=== PATIENT | male | born 1940 | race Caucasian/White ===

== ENCOUNTER 2024-05-05 22:06 | Emergency (ER) | payer OTHER ==
--- OUTSIDE RECORDS SUMMARY | 2024-05-05 22:10 | XMS REPORT | Continuity of Care Document ---
Author Name Unknown Address [address] [facility] [address] thconnect Address [address] [facility] 1 495 [place] [address] Care Team Providers Care Building Inspection Engineer Name Role Phone Le_H Attending Clinician Unavailable Debbie Hernandez Attending Clinician Unavailable Dipak Miller Attending Clinician Unavailable NICKO CHRISTENSEN Attending Clinician Maikol Krishna Admitting Clinician Unavailable Le_H Admitting Clinician Unavailable Payers Payer Name Policy Type Policy Number Effective Date Expirati on Date Source MEDICARE PART A \T\ B [id number] 2007 00:00:00 Problems Condition Name Condition Details Condition Category Status Onset Date Resolution Date Last Treatment Date Treating Clinician Comments Source Upper respirator y infection Upper Respirator y Infection Problem Active 05-31 00:00: 00 [facility] Benign neoplasm of pancreas, 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, Excluding Islets of Langerhans Problem Active 2013-04 00:00: 00 [facility] Benign prostatic hyperplasi a without outflow obstructio n Benign Prostatic Hyperplasi a without Outflow Obstructio n Problem Active 12-30 00:00: 00 [facility] 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 Problem Active 12-30 00:00: 00 [facility] Type 2 diabetes mellitus Type 2 Diabetes Mellitus Problem Active 12-30 00:00: 00 [facility] Hyperlipid emia Hyperlipid emia Problem Active 12-30 00:00: 00 [facility] Benign essential hypertensi on Benign Essential Hypertensi on Problem Active 12-30 00:00: 00 [facility] Allergies, Adverse Reactions, Alerts Allergy Name Allergy Type Status Severity Reaction(s) Onset Date Inactive Date Treating Clinician Comments Source No Known Intolera nces DA Active U 04-16 00:00: 00 [facility] No Known Intolera nces DA Active U UNKNOWN 04-16 00:00: 00 [facility] No Known Intolera nces DA Active U 06-26 00:00: 00 [facility] No Known Intolera nces DA Active U UNKNOWN 06-26 00:00: 00 [facility] NO KNOWN ALLERGIE S Drug Class Active [facility] Social History Smoking Status Start Date Stop Date Source Current Some Day Smoker [facility] Medications Ordered Medication Name Filled Medication Name Start Date Stop Date Current Medication? Ordering Clinician Indication Dosage Frequency Signature (SIG) Comments Components Source amlodipine 5 mg tablet Take 1 tablet every day by oral route. amlodipine 5 mg tablet Take 1 tablet every day by oral route. 05-31 00:00: 00 No 1 Q1D amlodipine 5 mg tablet Take 1 tablet every day by oral route. [facility] lisinopril 20 mg tablet Take 1 tablet every day by oral route. lisinopril 20 mg tablet Take 1 tablet every day by oral route. 05-31 00:00: 00 No 1 Q1D lisinopril 20 mg tablet Take 1 tablet every day by oral route. [facility] simvastatin 20 mg tablet Take 1 tablet every day by oral route. simvastatin 20 mg tablet Take 1 tablet every day by oral route. 05-31 00:00: 00 No 1 Q1D simvastati n 20 mg tablet Take 1 tablet every day by oral route. [facility] metformin 500 mg tablet Take 1 tablet twice a day by oral route. metformin 500 mg tablet Take 1 tablet twice a day by oral route. 11-05 00:00: 00 No 1 BID metformin 500 mg tablet Take 1 tablet twice a day by oral route. [facility] potassium chloride ER 10 mEq capsule,ext ended release Take 1 capsule every day by oral route. potassium chloride ER 10 mEq capsule,ext ended release Take 1 capsule every day by oral route. 11-05 00:00: 00 No 1capsul e(s) Q1D potassium chloride ER 10 mEq capsule,ex tended release Take 1 capsule every day by oral route. [facility] Ativan 1 mg tablet Ativan 1 mg tablet 07-18 00:00: 00 No Ativan 1 mg tablet [facility] azithromyci n 250 mg tablet TAKE 2 TABLETS (500 MG) BY ORAL ROUTE ONCE DAILY FOR 1 DAY THEN 1 TABLET (250 MG) BY ORAL ROUTE ONCE DAILY FOR 4 DAYS azithromyci n 250 mg tablet TAKE 2 TABLETS (500 MG) BY ORAL ROUTE ONCE DAILY FOR 1 DAY THEN 1 TABLET (250 MG) BY ORAL ROUTE ONCE DAILY FOR 4 DAYS No azithromyc in 250 mg tablet TAKE 2 TABLETS (500 MG) BY ORAL ROUTE ONCE DAILY FOR 1 DAY THEN 1 TABLET (250 MG) BY ORAL ROUTE ONCE DAILY FOR 4 DAYS [facility] benzonatate 100 mg capsule Take 1 capsule 3 times a day by oral route for 10 days. benzonatate 100 mg capsule Take 1 capsule 3 times a day by oral route for 10 days. No 1capsul e(s) TID benzonatat e 100 mg capsule Take 1 capsule 3 times a day by oral route for 10 days. [facility] hydrochloro thiazide 25 mg tablet Take 1 tablet every day by oral route. hydrochloro thiazide 25 mg tablet Take 1 tablet every day by oral route. No 1 Q1D hydrochlor othiazide 25 mg tablet Take 1 tablet every day by oral route. [facility] Immunizations Ordered Immunization Name Filled Immunization Name Date Status Comments Source Moderna COVID-19 Vaccine Moderna COVID-19 Vaccine 2020-08-25 00:00:00 Completed Moderna COVID-19 Vaccine Moderna COVID-19 Vaccine 2020-07-28 00:00:00 Completed Vital Signs Vital Name Observation Time Observation Value Comments S ource BP Diastolic 2022-05-31 00:00:00 68 mm[Hg] [facility] Height 2022-05-31 00:00:00 67 [in_i] [facility] BMI (Body Mass Index) 2022-05-31 00:00:00 24.4 kg/m2 [facility] BP Systolic 2022-05-31 00:00:00 114 mm[Hg] [facility] Body Weight 2022-05-31 00:00:00 156 [lb_av] Haja [facility] Encounters Start Date/Time End Date/Time Encounter Type Admission Type Attending [facility] Care Facility Care Department Encounter ID Source 2020-04-16 02:05:00 Inpatient [facility] EBER [id number] 30 [facility] 2019-05-28 15:10:00 Inpatient [facility] E[facility] [id number] 06 [facility] 2022-05-31 00:00:00 2022-05-31 00:00:00 Outpatient Le_H VFP VF [id number] [facility] 2022-05-31 00:00:00 2022-05-31 00:00:00 Jase PACE MD: [id number] , [address], [place] [address] , Ph. VFP [place] - [facility] [place] - VM_HOU_Floresita er Sarabjit [id number] [facility] 2020-11-04 16:19:00 2020-11-04 18:27:00 Emergency EM Debbie Hernandez [facility] E[facility] [id number] 63 [facility] 2020-09-28 10:47:00 2020-09-28 10:58:00 Emergency EM Dipak Miller [facility] [id number] 74 [facility] 2020-08-25 00:00:00 2020-08-25 00:00:00 Outpatient GCCOVIDV GCCOVIDV [id number] [facility] 2020-07-28 00:00:00 2020-07-28 00:00:00 Outpatient GCCOVIDV GCCOVID[facility] [id number] [facility] 2019-09-16 08:30:00 2019-09-16 08:30:00 Outpatient [facility]O [facility] [id number] [facility] 2019-09-16 08:30:00 2019-09-16 08:30:00 Outpatient [facility] [id number] [facility] Results Test Description Test Time Test Comments Results Resul t Comments Source - CT ABD PELVIS W/CONT 2020-11-04 18:10:00 [facility] 1940 Sex: M FAX: Maikol Ferris MD [phone] [place]: St: [facility] FAX: Debbie Guzman MD Name: JED FRANKEL [facility] : 1940 Age/S: 80/M [address] [facility] Unit: [id number] Loc: [address] Phys: [place] [id number] Acct: [id number] Dis Date: Status: REG ER PHONE #: [phone] Exam Date: 11/04/2020 1750 FAX #: [phone] Reason: llq pain EXAMS: CPT CODE: [id number] CT ABD PELVIS W/CONT 23477 EXAM: CT ABDOMEN AND PELVIS WITH IV CONTRAST DICTATION LOCATION: 8 HISTORY: Male, 80 years of age with left lower quadrant pain TECHNIQUE: Contrast: Nonionic IV contrast was given. No GI contrast was given. Portal venous phase: Abdomen and pelvis Delayed phase: None Reconstructions: Coronal and sagittal One or more of the following dose reduction techniques were used: Automated exposure control; adjustment of the mA and/or kV according to the patient size; and/or use of iterative reconstruction technique. COMPARISON: Previous CT abdomen and pelvis without contrast 04/16/2020; MRI abdomen pre and postcontrast 01/06/2014 FINDINGS: Statements: Exam quality is acceptable. Lower thorax: Unremarkable. Hepatobiliary: The liver is normal without focal lesion. The gallbladder is normal. No biliary dilation. Pancreas: Benign-appearing 1.8 cm cyst again seen in the anterior body of pancreas. No other pancreatic mass, ductal dilatation, or inflammation. Spleen: Normal. Adrenals: 2.1 cm low-density adenoma again seen in the left adrenal. Right adrenal is normal. Genitourinary: No solid renal mass, significant cortical thinning, obvious renal stone or hydronephrosis. Ureters are unremarkable. Urinary bladder is unremarkable. Prostate is moderately enlarged and lobulated. PAGE 1 Signed Report (CONTINUED) FAX: Maikol Ferris MD [phone] [place]: St: [facility] FAX: N Debbie Hernandez MD Name: JED FRANKEL [facility] : 1940 Age/S: 80/M [address] [facility] Unit: [id number] Loc: E.ERS2 [place], [place]: [place] [address] Acct: [id number] Dis Date: Status: REG ER PHONE #: [phone] Exam Date: 11/04/2020 175 FAX #: [phone] Reason: llq pain EXAMS: CPT CODE: [id number] CT ABD PELVIS W/CONT 85408 (Continued) Gastrointestinal: There are numerous colonic diverticula. Mild wall thickening and mucosal edema with mild pericolic stranding seen in the distal descending colon consistent with diverticulitis. No paracolic abscess collection. No other areas of bowel wall thickening nor. Anterior inflammation. No evidence for bowel obstruction. The appendix is normal. Vascular: Atherosclerotic calcifications are seen within the aorta and branch vessels. No aneurysm or dissection. IVC is unremarkable. Portal vein is patent. Lymphatics: No enlarged lymph nodes by CT size criteria. Bones/Soft Tissues: No acute osseous findings. 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 No ventral hernias. Peritoneum/Other: No free intraperitoneal air. No free intraperitoneal fluid. IMPRESSION: 1. Mild acute diverticulitis in the distal descending colon. 2. No abscess, free fluid, or free air. 3. Benign-appearing cyst in body of pancreas and benign adenoma in left adrenal unchanged since prior studies. 4. Enlarged prostate. at 1810 Reported and signed by: Margo Lozano M.D. CC: Maikol Mahmood MD; Debbie Hernandez MD Technologist: SWEETIE Shafer Dt/Tm: 11/04/2020 (1809) t.CLW Orig Print D/T: S: 11/04/2020 (3 PAGE 2 Signed Report [id number] 17:22:00* Test Item Value Reference Range Interpretation Comme [facility] LIPASE (test code = LIP) 115 Units/L 65.0-230.0 N B-TYPE NATRIURETIC [id number] 17:22:00* Test Item Value Reference Range Interpretation Comme [facility] B-TYPE NATRIURETIC PEPTIDE ( test code = BNP) 18.1 PG/ML 5-100 N CARDIAC ENZYMES [id number] 17:22:00* Test Item Value Reference Range Interpretation Comme nts CREATINE KINASE (CK) (test code = CK) 40 Units/L 35-232 N TROPONIN-I (test code = TROPI) <0.02 NG/ML 0.00-0.06 N REFERENCE RANGE TROPONIN I HEALTHY INDIVIDUALS: <0.06 ng/mL R/O ISCHEMIA: 0.07 - 0.60 ng/mL CUT-OFF RANGE FOR AMI: 0.60 - 1.5 ng/mL COMPREHENSIVE METABOLIC [id number] 17:15:00* Test Item Value Reference Range Interpretation Comme nts SODIUM (test code = NA) 141 mmol/l 134.0-147.0 N POTASSIUM (test code = K) 2.8 mmol/L 3.6-5.2 L CHLORIDE (test code = CL) 102 mmol/l 98.0-107.0 N CARBON DIOXIDE (test code = CO2) 30.7 mmol/l 21.0-33.0 N ANION GAP (test code = GAP) 11.0 0-20 N GLUCOSE (test code = GLU) 139 mg/dl 70.0-110.0 H BLOOD UREA NITROGEN (test co de = BUN) 11 mg/dl 7.0-18.0 N CREATININE (test code = CREAT) 1.09 mg/dL 0.60-1.30 N GFR NON BLACK (test code = GFRNONBLACK) 69 mL/min 70-80 L GFR BLACK (test code = GFRBLACK) 84 mL/min 85-97 L TOTAL PROTEIN (test code = PROT) 8.1 GM/DL 6.0-8.1 N ALBUMIN (test code = ALB) 4.0 gm/dL 3.2-4.7 N CALCIUM (test code = CA) 8.3 mg/dl 8.0-10.5 N BILIRUBIN TOTAL (test code = BILT) 0.5 mg/dl 0.0-1.0 N SGOT/AST (test code = AST) 34 Units/L 15-37 N SGPT/ALT (test code = ALT) 54 Units/L 12.0-78.0 N ALKALINE PHOSPHATASE TOTAL ( test code = ALKP) 82 Units/L 50.0-136.0 N [id number] 17:15:00* Test Item Value Reference Range Interpretation Comme [facility] LIPASE (test code = LIP) 115 Units/L 65.0-230.0 N B-TYPE NATRIURETIC [id number] 17:15:00* Test Item Value Reference Range Interpretation Comme [facility] B-TYPE NATRIURETIC PEPTIDE ( test code = BNP) PG/ML 5-100 CARDIAC ENZYMES [id number] 17:15:00* Test Item Value Reference Range Interpretation Comme [facility] CREATINE KINASE (CK) (test code = CK) 40 Units/L 35-232 N TROPONIN-I (test code = TROPI) <0.02 NG/ML 0.00-0.06 N REFERENCE RANGE TROPONIN I HEALTHY INDIVIDUALS: <0.06 ng/mL R/O ISCHEMIA: 0.07 - 0.60 ng/mL CUT-OFF RANGE FOR AMI: 0.60 - 1.5 ng/mL - XR CHEST 1 [id number] 17:11:00 [facility] : 1940 Sex: M FAX: Maikol Ferris MD [phone] [place]: St: PRE FAX: Debbie Guzman MD [facility] 1940 Age/S: 80[facility]M [address] [facility] Unit #: [id number] Loc: E.[address] [place] [address] Phys: [place] [id number] Acct: [id number] Dis Date: Status: PRE ER PHONE #: [phone] Exam Date: 11/04/2020 1658 FAX #: [phone] Reason: llq pain EXAMS: CPT CODE: [id number] XR CHEST 1 V 75597 DICTATION LOCATION: H48 HISTORY: Male, 80 years of age with left lower quadrant pain EXAM: CHEST X-RAY, ONE VIEW COMPARISON: 06/25/2012 COMMENT: Frontal view of the chest is provided. Calcified plaque seen in the aorta. No focal infiltrate, consolidation, mass lesion, or effusion is seen. Cardiac silhouette is within normal limits. No acute bony abnormalities. IMPRESSION: No acute infiltrate or effusion and no significant change since prior study. at 1711 Reported and signed by: Margo Lozano M.D. CC: Maikol Ivey MD; Debbie Hernandez MD Technologist: MIKE VALDERRAMA Trnscrd Date/Time/By: 11/04/2020 (1710) : By: Radha PAGE 1 Signed Report FAX: Maikol Ferris MD [phone] [place]: St: PRE FAX: Debbie Guzman MD Name: JED FRANKEL [facility] : 1940 Age/S: 80/M [address] [facility] Unit #: [id number] Loc: [address] Phys: [place] [address] Acct: [id number] Dis Date: Status: PRE ER PHONE #: [phone] Exam Date: 11/04/20201657 FAX #: [phone] Reason: llq pain EXAMS: CPT CODE: [id number] XR CHEST 1 V 34981 (Continued) Orig Print D/T: S: 11/04/2020 (8837) PAGE 2 Signed ReportURINALYSIS [id number] 17:06:00* Test Item Value Reference Range Interpretation Comme nts UA COLOR (test code = COLU) YELLOW UA APPEARANCE (test code = APPU) CLEAR UA GLUCOSE DIPSTICK (test code = DGLUU) NORMAL mg/dl NORMAL UA BILIRUBIN DIPSTICK (test code = BILU) NEGATIVE mg/dL NEGATIVE UA KETONE DIPSTICK (test code = KETU) NEGATIVE mg/dl NEGATIVE UA SPECIFIC GRAVITY (test code = SGU) 1.015 1.000-1.030 UA BLOOD DIPSTICK (test code = BRYNN) NEGATIVE Dimitri/micL NEGATIVE UA PH DIPSTICK (test code = DANILO) 5.0 5.0-9.0 UA PROTEIN DIPSTICK (test code = PROU) NEGATIVE mg/dl NEGATIVE UA UROBILINIOGEN DIPSTICK (test code = URO) NORMAL mg/dl NORMAL UA NITRITE DIPSTICK (test code = MAX) NEGATIVE NEGATIVE UA LEUKOCYTE ESTERASE DIPSTICK (test code = LEUU) NEGATIVE Richie/micL NEGATIVE UA WBC (test code = WBCU) NONE SEEN WBC/HPF NONE UA RBC (test code = RBCU) 0-2 RBC/HPF 0-3 UA EPITHELIAL CELLS (test code = EPIU) 0-3 EPI/HPF 0-3 UA BACTERIA (test code = BACU) TRACE NONE URINALYSIS [id number] 17:03:00* Test Item Value Reference Range Interpretation Comme nts UA COLOR (test code = COLU) YELLOW UA APPEARANCE (test code = APPU) CLEAR UA GLUCOSE DIPSTICK (test code = DGLUU) NORMAL mg/dl NORMAL UA BILIRUBIN DIPSTICK (test code = BILU) NEGATIVE mg/dL NEGATIVE UA KETONE DIPSTICK (test code = KETU) NEGATIVE mg/dl NEGATIVE UA SPECIFIC GRAVITY (test code = SGU) 1.015 1.000-1.030 UA BLOOD DIPSTICK (test code = BRYNN) NEGATIVE Dimitri/micL NEGATIVE UA PH DIPSTICK (test code = DANILO) 5.0 5.0-9.0 UA PROTEIN DIPSTICK (test code = PROU) NEGATIVE mg/dl NEGATIVE UA UROBILINIOGEN DIPSTICK (test code = URO) NORMAL mg/dl NORMAL UA NITRITE DIPSTICK (test code = MAX) NEGATIVE NEGATIVE UA LEUKOCYTE ESTERASE DIPSTICK (test code = LEUU) NEGATIVE Richie/micL NEGATIVE UA WBC (test code = WBCU) WBC/HPF NONE UA RBC (test code = RBCU) RBC/HPF 0-3 UA EPITHELIAL CELLS (test code = EPIU) EPI/HPF 0-3 UA BACTERIA (test code = BACU) NONE CBC W/AUTO [id number] 17:03:00* Test Item Value Reference Range Interpretation Comme nts WHITE BLOOD CELL (test code = WBC) 11.6 K/mm3 4.5-11.0 H RED BLOOD CELL (test code = RBC) 5.11 M/mm3 4.40-5.90 N HEMOGLOBIN (test code = HGB) 15.2 gm/dL 13.0-17.0 N HEMATOCRIT (test code = HCT) 46.8 % 36.0-48.0 N MEAN CELL VOLUME (test code = MCV) 91.6 UM3 80.0-94.0 N MEAN CELL HGB (test code = MCH) 29.7 UUG 25.5-32.5 N MEAN CELL HGB CONCETRATION (test code = MCHC) 32.5 gm/dL 29.0-35.5 N RED CELL DISTRIBUTION WIDTH (test code = RDW) 12.7 % 11.5-15.0 N RED CELL DISTRIBUTION WIDTH SD (test code = RDW-SD) 42.2 fL 34.8-50.2 N PLATELET COUNT (test code = PLT) 225 K/mm3 150-400 N MEAN PLATELET VOLUME (test c ode = MPV) 10.8 fl 7.4-10.4 H NEUTROPHIL % (test code = NT%) 65.4 % 49.0-76.0 N IMMATURE GRANULOCYTE % (test code = IG%) 0.3 % 0.0-0.4 N LYMPHOCYTE % (test code = LY%) 24.7 % 23.0-38.0 N MONOCYTE % (test code = MO%) 8.9 % 1.0-10.0 N EOSINOPHIL % (test code = EO%) 0.3 % 1.0-5.0 L BASOPHIL % (test code = BA%) 0.4 % 0.0-1.0 N NUCLEATED RBC % (test code = NRBC%) 0.0 % 0.0-0.1 N NEUTROPHIL # (test code = NT#) 7.6 K/mm3 2.4-6.3 H IMMATURE GRANULOCYTE # (test code = IG#) 0.04 x10 3/uL 0.00-0.07 N LYMPHOCYTE # (test code = LY#) 2.9 K/mm3 1.2-4.0 N MONOCYTE # (test code = MO#) 1.0 K/mm3 0.0-0.6 H EOSINOPHIL # (test code = EO#) 0.0 K/MM3 0.0-0.7 N BASOPHIL # (test code = BA#) 0.1 K/mm3 0.0-0.2 N NUCLEATED RBC # (test code = NRBC#) 0.00 X10 3uL 0.00-0.01 N - CT ABD PELVIS W/O [id number] 03:47:00 [facility] : 1940 Sex: M FAX: Maikol Ferris MD [phone] [place]: St: REG FAX: Riky Valera MD [phone] Name: FRANKELJED COLON [facility] : 1940 Age/S: 80/M [address] [facility] Unit: [id number] Loc: [address] Phys: [place] [address] Acct: [id number] Dis Date: Status: REG ER PHONE #: Exam Date: 04/16/2020309 FAX #: [phone] Reason: LLQ PAIN, RULE OUT DIVERTICULITIS EXAMS: CPT CODE: [id number] CT ABD PELVIS W/O CONT 52600 EXAM: - CT ABD PELVIS W/O CONT HISTORY: Left lower quadrant pain. TECHNIQUE: Axial tomograms through the abdomen and pelvis were obtained without intravenous contrast. Coronal and sagittal reformatted images are provided. This exam was performed according to our departmental dose-optimization program, which includes automated exposure control, adjustment of the mA and/or kV according to patient size and/or use of iterative reconstructiontechnique. COMPARISON: December 30, 2013. FINDINGS: The visualized lung bases are clear. The unopa cified liver, spleen, right adrenal gland and kidneys demonstrate no significant abnormalities. No hydronephrosis. There is a small 1.5 cm cystic lesion in body portion of pancreas anteriorly. This has increased in size compared to 8 mm on prior exam. Stable 2.4 cm left adrenal nodule. 2 cm cortical cyst in the left kidney has increased in size from 10 mm on prior exam. The appendix has a normal appearance. The colon is filled with fecal matter. There is as diverticulosis. Minimal stranding of fat around a diverticulum in left lower quadrant medially. There is no evidence of extraluminal freeair or fluid collection. There is no adenopathy or free fluid. The prostate is prominent in size indenting the base of the urinary bladder. The osseous structures demonstrate degenerative change without focal lesion. PAGE 1 Signed Report (CONTINUED) FAX: Maikol Ferris MD [phone] [place]: St: REG FAX: Riky Valera MD [phone] Name: JED FRANKEL [facility] : 1940 Age/S: 80/M [address] [facility] Unit: [id number] Loc: [address] Phys: [place] [address] Acct: [id number] Dis Date: Status: REG ER PHONE #: [phone] Exam Date: 04/16/2020309 FAX #: [phone] Reason: LLQ PAIN, RULE OUT DIVERTICULITIS EXAMS: CPT CODE: [id number] CT ABD PELVIS W/O CONT 78158 (Continued) There is calcified plaque involving the abdominal aorta and it's major branching vessels. IMPRESSION: Colon diverticulosis. There is trace stranding of fat in left lower quadrant. This could represent mild acute diverticulitis. Small cystic lesion in body of the pancreas. This has increased in size compared to previous exam. Stable left adrenal nodule. Minimal increase in size of the left renal cyst. Atherosclerosis. Prominent prostate. at 0347 Reported and signed by: Marcin Nair M.D. CC: Maikol Mahmood MD; Riky Valera MD Technologist: REGINA GONZALES Trnscrd Dt/Tm: 04/16/2020 (0347) [email or web address].[id number] Orig Print D/T: S: 04/16/2020 (3675 PAGE 2 Signed ReportBASIC METABOLIC PANEL 2020-04-16 03:06:00* Test Item Value Reference Range Interpretation Comme nts SODIUM (test code = NA) 138 mmol/l 134.0-147.0 N POTASSIUM (test code = K) 3.2 mmol/L 3.6-5.2 L CHLORIDE (test code = CL) 100 mmol/l 98.0-107.0 N CARBON DIOXIDE (test code = CO2) 30.9 mmol/l 21.0-33.0 N ANION GAP (test code = GAP) 10.3 0-20 N GLUCOSE (test code = GLU) 186 mg/dl 70.0-110.0 H BLOOD UREA NITROGEN (test co de = BUN) 9 mg/dl 7.0-18.0 N CREATININE (test code = CREAT) 0.87 mg/dL 0.60-1.30 N GFR NON BLACK (test code = GFRNONBLACK) 90 mL/min 70-80 H GFR BLACK (test code = GFRBLACK) 109 mL/min 85-97 H CALCIUM (test code = CA) 8.9 mg/dl 8.0-10.5 N Specimen comments: Clean CatchHEPATIC FUNCTION PANEL [id number] 03:06:00* Test Item Value Reference Range Interpretation Comme nts TOTAL PROTEIN (test code = PROT) 7.4 GM/DL 6.0-8.1 N ALBUMIN (test code = ALB) 3.6 gm/dL 3.2-4.7 N BILIRUBIN TOTAL (test code = BILT) 0.6 mg/dl 0.0-1.0 N BILIRUBIN DIRECT (test code = BILD) 0.2 mg/dl 0.0-0.3 N SGOT/AST (test code = AST) 51 Units/L 15-37 H SGPT/ALT (test code = ALT) 78 Units/L 12.0-78.0 N ALKALINE PHOSPHATASE TOTAL ( test code = ALKP) 90 Units/L 50.0-136.0 N Specimen comments: Clean [id number] 03:06:00* Test Item Value Reference Range Interpretation Comme nts LIPASE (test code = LIP) 164 Units/L 65.0-230.0 N Specimen comments: AUPEO![id number] 03:06:00* Test Item Value Reference Range Interpretation Comme nts TROPONIN-I (test code = TROPI) <0.02 NG/ML 0.00-0.06 N REFERENCE RANGE TROPONIN I HEALTHY INDIVIDUALS: <0.06 ng/mL R/O ISCHEMIA: 0.07 - 0.60 ng/mL CUT-OFF RANGE FOR AMI: 0.60 - 1.5 ng/mL Specimen comments: AUPEO!BASIC METABOLIC [id number] 02:56:00* Test Item Value Reference Range Interpretation Comme nts SODIUM (test code = NA) 138 mmol/l 134.0-147.0 N POTASSIUM (test code = K) 3.2 mmol/L 3.6-5.2 L CHLORIDE (test code = CL) 100 mmol/l 98.0-107.0 N CARBON DIOXIDE (test code = CO2) 30.9 mmol/l 21.0-33.0 N ANION GAP (test code = GAP) 10.3 0-20 N GLUCOSE (test code = GLU) mg/dl 70.0-110.0 BLOOD UREA NITROGEN (test co de = BUN) mg/dl 7.0-18.0 CREATININE (test code = CREAT) mg/dL 0.60-1.30 GFR NON BLACK (test code = GFRNONBLACK) mL/min 70-80 GFR BLACK (test code = GFRBLACK) mL/min 85-97 CALCIUM (test code = CA) mg/dl 8.0-10.5 Specimen comments: Clean CatchHEPATIC FUNCTION PANEL [id number] 02:56:00* Test Item Value Reference Range Interpretation Comme nts TOTAL PROTEIN (test code = PROT) gm/dL 6.4-8.2 ALBUMIN (test code = ALB) gm/dl 3.2-4.7 BILIRUBIN TOTAL (test code = BILT) mg/dl 0.0-1.0 BILIRUBIN DIRECT (test code = BILD) mg/dl 0.0-0.3 SGOT/AST (test code = AST) Units/L 15-37 SGPT/ALT (test code = ALT) Units/L 12.0-78.0 ALKALINE PHOSPHATASE TOTAL ( test code = ALKP) Units/L 50.0-136.0 Specimen comments: Clean [id number] 02:56:00* Test Item Value Reference Range Interpretation Comme nts LIPASE (test code = LIP) Units/L 65.0-230.0 Specimen comments: Clean [id number] 02:56:00* Test Item Value Reference Range Interpretation Comme nts TROPONIN-I (test code = TROPI) NG/ML 0.00-0.06 Specimen comments: Clean CatchURINALYSIS [id number] 02:49:00* Test Item Value Reference Range Interpretation Comme nts UA COLOR (test code = COLU) YELLOW UA APPEARANCE (test code = APPU) CLEAR UA GLUCOSE DIPSTICK (test code = DGLUU) 50 mg/dl mg/dl NORMAL A UA BILIRUBIN DIPSTICK (test code = BILU) NEGATIVE mg/dL NEGATIVE UA KETONE DIPSTICK (test code = KETU) NEGATIVE mg/dl NEGATIVE UA SPECIFIC GRAVITY (test code = SGU) 1.010 1.000-1.030 UA BLOOD DIPSTICK (test code = BRYNN) 10 Dimitri/micL Dimitri/micL NEGATIVE A UA PH DIPSTICK (test code = DANILO) 7.0 5.0-9.0 UA PROTEIN DIPSTICK (test code = PROU) 15 mg/dl mg/dl NEGATIVE A UA UROBILINIOGEN DIPSTICK (test code = URO) NORMAL mg/dl NORMAL UA NITRITE DIPSTICK (test code = MAX) NEGATIVE NEGATIVE UA LEUKOCYTE ESTERASE DIPSTICK (test code = LEUU) NEGATIVE Richie/micL NEGATIVE UA WBC (test code = WBCU) 0-3 WBC/HPF NONE UA RBC (test code = RBCU) 0-2 RBC/HPF 0-3 UA EPITHELIAL CELLS (test code = EPIU) 0-3 EPI/HPF 0-3 UA BACTERIA (test code = BACU) FEW NONE Specimen comments: Clean CatchCBC W/AUTO [id number] 02:48:00* Test Item Value Reference Range Interpretation Comme nts WHITE BLOOD CELL (test code = WBC) 6.5 K/mm3 4.5-11.0 N RED BLOOD CELL (test code = RBC) 5.01 M/mm3 4.40-5.90 N HEMOGLOBIN (test code = HGB) 15.5 gm/dL 13.0-17.0 N HEMATOCRIT (test code = HCT) 47.1 % 36.0-48.0 N MEAN CELL VOLUME (test code = MCV) 94.0 UM3 80.0-94.0 N MEAN CELL HGB (test code = MCH) 30.9 UUG 25.5-32.5 N MEAN CELL HGB CONCETRATION (test code = MCHC) 32.9 gm/dL 29.0-35.5 N RED CELL DISTRIBUTION WIDTH (test code = RDW) 13.0 % 11.5-15.0 N RED CELL DISTRIBUTION WIDTH SD (test code = RDW-SD) 44.5 fL 34.8-50.2 N PLATELET COUNT (test code = PLT) 206 K/mm3 150-400 N MEAN PLATELET VOLUME (test c ode = MPV) 10.5 fl 7.4-10.4 H NEUTROPHIL % (test code = NT%) 52.6 % 49.0-76.0 N IMMATURE GRANULOCYTE % (test code = IG%) 0.8 % 0.0-0.4 H LYMPHOCYTE % (test code = LY%) 32.7 % 23.0-38.0 N MONOCYTE % (test code = MO%) 12.1 % 1.0-10.0 H EOSINOPHIL % (test code = EO%) 1.2 % 1.0-5.0 N BASOPHIL % (test code = BA%) 0.6 % 0.0-1.0 N NUCLEATED RBC % (test code = NRBC%) 0.0 % 0.0-0.1 N NEUTROPHIL # (test code = NT#) 3.4 K/mm3 2.4-6.3 N IMMATURE GRANULOCYTE # (test code = IG#) 0.05 x10 3/uL 0.00-0.07 N LYMPHOCYTE # (test code = LY#) 2.1 K/mm3 1.2-4.0 N MONOCYTE # (test code = MO#) 0.8 K/mm3 0.0-0.6 H EOSINOPHIL # (test code = EO#) 0.1 K/MM3 0.0-0.7 N BASOPHIL # (test code = BA#) 0.0 K/mm3 0.0-0.2 N NUCLEATED RBC # (test code = NRBC#) 0.00 X10 3uL 0.00-0.01 N URINALYSIS [id number] 02:43:00* Test Item Value Reference Range Interpretation Comme nts UA COLOR (test code = COLU) YELLOW UA APPEARANCE (test code = APPU) CLEAR UA GLUCOSE DIPSTICK (test code = DGLUU) 50 mg/dl mg/dl NORMAL A UA BILIRUBIN DIPSTICK (test code = BILU) NEGATIVE mg/dL NEGATIVE UA KETONE DIPSTICK (test code = KETU) NEGATIVE mg/dl NEGATIVE UA SPECIFIC GRAVITY (test code = SGU) 1.010 1.000-1.030 UA BLOOD DIPSTICK (test code = BRYNN) 10 Dimitri/micL Dimitri/micL NEGATIVE A UA PH DIPSTICK (test code = DANILO) 7.0 5.0-9.0 UA PROTEIN DIPSTICK (test code = PROU) 15 mg/dl mg/dl NEGATIVE A UA UROBILINIOGEN DIPSTICK (test code = URO) NORMAL mg/dl NORMAL UA NITRITE DIPSTICK (test code = MAX) NEGATIVE NEGATIVE UA LEUKOCYTE ESTERASE DIPSTICK (test code = LEUU) NEGATIVE Richie/micL NEGATIVE UA WBC (test code = WBCU) WBC/HPF NONE UA RBC (test code = RBCU) RBC/HPF 0-3 UA EPITHELIAL CELLS (test code = EPIU) EPI/HPF 0-3 UA BACTERIA (test code = BACU) NONE Specimen comments: Clean Catch
--- NOTE | 2024-05-05 22:56 | ER ---
Nurse's Notes [facility] Name: Nitin Jones Age: 84 yrs Sex: Male : 1940 Arrival Date: 05/05/2024 Time: 22:06 Bed 3 Private MD: Diagnosis: Chronic Dementia, Dementia with memory loss without behavioral disturbances. Presentation: 05/05 22:08 Chief complaint: EMS states: Pt was pulled over and [place] [employer] realized this bm8 probably a demented person. PT brought in for possible high blood pressure. Coronavirus screen: At this time, the client does not indicate any symptoms associated with coronavirus-19. Ebola Screen: Patient negative for fever greater than or equal to 101.5 degrees Fahrenheit, and additional compatible Ebola Virus Disease symptoms Patient denies exposure to infectious person. Patient denies travel to an Ebola-affected area in the 21 days before illness onset. No symptoms or risks identified at this time. Initial Sepsis Screen: Does the patient meet any 2 criteria? No. Patient's initial sepsis screen is negative. Does the patient have a suspected source of infection? No. Patient's initial sepsis screen is negative. Risk Assessment: Do you want to hurt yourself or someone else? Patient reports no desire to harm self or others. Onset of symptoms is unknown. 22:08 Method Of Arrival: EMS: [facility] 8 22:08 Acuity: RON 3 bm8 Triage Assessment: 22:10 General: Appears in no apparent distress. comfortable, well groomed, well developed, bm8 well nourished, Behavior is calm, cooperative, appropriate for age, friendly pleasant and open. Pain: Denies pain. EENT: No deficits noted. No signs and/or symptoms were reported regarding the EENT system. Neuro: Level of Consciousness is awake, alert, obeys commands, Oriented to person, place, situation, Appropriate for age Moves all extremities. Full function Gait is steady, Speech is normal, Facial symmetry appears normal, Pupils are PERRLA. Cardiovascular: Denies chest pain, Capillary refill < 3 seconds in bilateral fingers Patient's skin is warm and dry. Respiratory: Airway is patent Respiratory effort is even, unlabored, Respiratory pattern is regular, symmetrical. GI: No signs and/or symptoms were reported involving the gastrointestinal system. : No signs and/or symptoms were reported regarding the genitourinary system. Derm: No signs and/or symptoms reported regarding the dermatologic system. Musculoskeletal: No signs and/or symptoms reported regarding the musculoskeletal system. Historical: - Allergies: 22:10 No Known Allergies; bm8 - Home Meds: 22:10 Unable to obtain [Active]; bm8 - PMHx: 22:10 Dementia; bm8 - PSHx: 22:10 None; bm8 - Immunization history:: Adult Immunizations unknown. - Infectious Disease History:: Denies. - Social history:: Smoking status: unknown. - Family history:: not pertinent. Screenin:37 [facility] ED Fall Risk Assessment (Adult) History of falling in the last 3 months, bm8 including since admission No falls in past 3 months (0 pts) Confusion or Disorientation Yes (5 pts) Intoxicated or Sedated No (0 pts) Impaired Gait No (0 pts) Mobility Assist Device Used No (0 pt) Altered Elimination No (0 pt) Score/Fall Risk Level 0 - 2 = Low Risk Oriented to surroundings, Maintained a safe environment, Educated pt \T\ family on fall prevention, incl call for assistance when getting out of bed, Assessed \T\ reinforced patient's understanding of fall precautions, Hourly rounding (assess needs \T\ fall precautionary measures) done, Used ambulatory aids as needed (educated on \T\ assisted with), Used gait belt as appropriate. Abuse screen: Denies threats or abuse. Nutritional screening: No deficits noted. Tuberculosis screening: No symptoms or risk factors identified. Assessment: 22:37 Reassessment: Patient appears in no apparent distress at this time. Patient and/or bm8 family updated on plan of care and expected duration. Pain level reassessed. Patient is alert, oriented x 3, equal unlabored respirations, skin warm/dry/pink. Patient denies pain at this time. General: Appears in no apparent distress. comfortable, Behavior is calm, cooperative, appropriate for age. Pain: Denies pain. 22:57 Reassessment: Pt's daughter in law present to take pt home. bm8 Vital Signs: 22:08 BP 159 / 76; Pulse 106; Resp 18; Temp 97.9; Pulse Ox 98% ; Weight 68.04 kg; Height 5 bm8 ft. 8 in. ; Pain 0/10; 22:37 BP 131 / 62; Pulse 82; Resp 17; Temp 97.9; Pulse Ox 98% ; Pain 0/10; bm8 22:08 Body Mass Index 22.81 (68.04 kg, 172.72 cm) bm8 22:08 Pain Scale: Adult bm8 22:37 Pain Scale: Adult bm8 [place] Coma Score: 22:37 Eye Response: spontaneous(4). Motor Response: obeys commands(6). Verbal Response: bm8 oriented(5). Total: 15. 03 02:59 Eye Response: spontaneous(4). Motor Response: obeys commands(6). Verbal Response: sp4 oriented(5). Total: 15. NIH Stroke Scale Scores: 03:02 NIHSS Score: 2 sp4 ED Course: 05/05 22:07 Patient arrived in ED. bm8 22:08 Kirk Edouard MD is Attending Physician. sp4 22:10 Triage completed. bm8 22:10 Arm band placed on right wrist. bm8 22:15 Gennaro Lagos RN is Primary Nurse. bm8 22:37 Patient has correct armband on for positive identification. Client placed on continuous bm8 cardiac and pulse oximetry monitoring. NIBP monitoring applied. Pulse ox on. NIBP on. Door closed. Noise minimized. Warm blanket given. Pillow given. Verbal reassurance given. Head of bed. 22:37 No provider procedures requiring assistance completed. bm8 22:57 Provided Education on: post er care. bm8 22:57 Patient did not have IV access during this emergency room visit. bm8 Administered Medications: No medications were administered Medication: 22:37 VIS not applicable for this client. bm8 Outcome: 22:56 Discharge ordered by . sp4 22:57 Discharged to home ambulatory, with family, bm8 22:57 Condition: stable 22:57 Discharge instructions given to patient, family, Instructed on discharge instructions, follow up and referral plans. Demonstrated understanding of instructions, follow-up care, 23:02 Patient left the ED. bm8 NIH Stroke Scale - NIH Stroke Score Date: 05/06/2024 Time: 03:02 Total Score = 2 10. Dysarthria (speech clarity - read or repeat words) - 0(Normal) 11. Extinction and Inattention (visual/tactile/auditory/spatial/personal) - 0(No abnormality) 1a. Level of Consciousness (LOC) - 0(Alert) 1b. Level of Consciousness (LOC) (Month \T\ Age) - 2(Neither) 1c. LOC Commands (Open \T\ Closes Eyes/Air Compressor Engineer) - 0(Both) 2. Best Gaze (Lateral Gaze Paresis) - 0(Normal) 3. Visual Field Loss - 0(No visual loss) 4. Facial Palsy - 0(Normal) 5a. Left Arm: Motor (10-second hold) - 0(No drift) 5b. Right Arm: Motor (10-second hold) - 0(No drift) 6a. Left Leg: Motor (5-second hold - always test supine) - 0(No drift) 6b. Right Leg: Motor (5-second hold - always test supine) - 0(No drift) 7. Limb Ataxia (finger/nose \T\ heel/calles - test with eyes open) - 0(Absent) 8. Sensory Loss (pinprick arms/legs/face) - 0(Normal) 9. Best Language: Aphasia (description/naming/reading) - 0(No aphasia) Initials: sp4 Signatures: Kirk Edouard MD MD sp4 Gennaro Lagos, RN RN bm8
--- NOTE | 2024-05-05 22:56 | EDPHYS ---
Physician Documentation [facility] Name: Nitin Jones Age: 84 yrs Sex: Male : 1940 Arrival Date: 05/05/2024 Time: 22:06 Bed 3 Private MD: ED Physician Kirk Edouard HPI: 05/05 22:09 This 84 yrs old Male presents to ER via Unassigned with complaints of Blood sp4 Pressure Problem. 05/06 02:59 84-year-old male with history of dementia presents with EMS. Patient was stopped by the [place] police because he was speeding in a [place] . Patient was evaluated by the police and found to be confused. EMS was called and patient was brought here for confusion and altered mental status. Patient states he has history of dementia. He is able to cooperate with exam and answer basic questions.. Historical: - Allergies: 05/05 22:10 No Known Allergies; bm8 - Home Meds: 22:10 Unable to obtain [Active]; bm8 - PMHx: 22:10 Dementia; bm8 - PSHx: 22:10 None; bm8 - Immunization history:: Adult Immunizations unknown. - Infectious Disease History:: Denies. - Social history:: Smoking status: unknown. - Family history:: not pertinent. ROS: 05/06 02:59 Constitutional: Negative for fever, chills, and weight loss, positive for reported sp4 confusion and altered mental status All other systems are negative, Exam: 02:59 Constitutional: This is a well developed, well nourished patient who is awake, alert, sp4 and in no acute distress. Patient is pleasantly demented but able to cooperate with exam and answer basic questions. He is alert and oriented to self and location. Disoriented to date and time Head/Face: Normocephalic, atraumatic. Eyes: Pupils equal round and reactive to light, extra-ocular motions intact. Lids and lashes normal. Conjunctiva and sclera are not injected. Cornea within normal limits. Periorbital areas with no swelling, redness, or edema. ENT: Nares patent. No nasal discharge, no septal abnormalities noted. Tympanic membranes are normal and external auditory canals are clear. Oropharynx with no redness, swelling, or masses, exudates, or evidence of obstruction, uvula midline. Mucous membranes moist. Neck: Trachea midline, no thyromegaly or masses palpated, and no cervical lymphadenopathy. Supple, full range of motion without nuchal rigidity, or vertebral point tenderness. Chest/axilla: Normal chest wall appearance and motion. Nontender with no deformity. No lesions are appreciated. Cardiovascular: Regular rate and rhythm with a normal S1 and S2. No gallops, murmurs, or rubs. Normal PMI, no JVD. No pulse deficits. Respiratory: Lungs have equal breath sounds bilaterally, clear to auscultation and percussion. No rales, rhonchi or wheezes noted. No increased work of breathing, no retractions or nasal flaring. Abdomen/GI: Soft, with normal bowel sounds. No distension or tympany. No guarding or rebound. No evidence of tenderness throughout. Back: No spinal tenderness. No costovertebral tenderness. Skin: Warm, dry with normal turgor. Normal color with no rashes, no lesions, and no evidence of cellulitis. MS/ Extremity: Pulses equal, no cyanosis. Neurovascular intact. Full, normal range of motion. Neuro: Awake and alert, GCS 15, oriented to person, place, Cranial nerves II-XII grossly intact. Motor strength 5/5 in all extremities. Sensory grossly intact. Psych: Awake, alert, with orientation to person, place disoriented to time, no sign of depression or anxiety Vital Signs: 05/05 22:08 BP 159 / 76; Pulse 106; Resp 18; Temp 97.9; Pulse Ox 98% ; Weight 68.04 kg; Height 5 bm8 ft. 8 in. ; Pain 0/10; 22:37 BP 131 / 62; Pulse 82; Resp 17; Temp 97.9; Pulse Ox 98% ; Pain 0/10; bm8 22:08 Body Mass Index 22.81 (68.04 kg, 172.72 cm) bm8 22:08 Pain Scale: Adult bm8 22:37 Pain Scale: Adult bm8 NIH Stroke Scale Scores: 02 03:02 NIHSS Score: 2 sp4 [place] Coma Score: 05/05 22:37 Eye Response: spontaneous(4). Motor Response: obeys commands(6). Verbal Response: bm8 oriented(5). Total: 15. 05/06 02:59 Eye Response: spontaneous(4). Motor Response: obeys commands(6). Verbal Response: sp4 oriented(5). Total: 15. MDM: 05/05 22:12 Medical Screening Exam initiated sp4 05/06 03:01 Differential Diagnosis: electrolyte abnormality. sp4 03:02 Data reviewed: vital signs, nurses notes, EMS record. Consideration of sp4 Admission/Observation Escalation of care including admission/observation considered. ED course: Patient's daughter arrived to the emergency room and states that her father is currently at his baseline mental status. Patient does have signs of moderate dementia but he is quite functional, ambulatory. And cooperative . Patient's daughter states she would like to take him home. At this time since mental status is at baseline we see no further workup necessity. Patient stable for discharge home and in to the care of his family. Administered Medications: No medications were administered Disposition Summary: 05/05/24 22:56 Discharge Ordered Notes: Location: Home sp4 Problem: new sp4 Symptoms: have improved sp4 Condition: Stable sp4 Diagnosis - Chronic Dementia, Dementia with memory loss without behavioral disturbances. sp4 Followup: sp4 - With: Private Physician - When: As needed - Reason: Recheck today's complaints Discharge Instructions: - Discharge Summary Sheet sp4 - Dementia Caregiver Guide sp4 Forms: - Patient Portal Instructions sp4 NIH Stroke Scale - NIH Stroke Score Date: 05/06/2024 Time: 03:02 Total Score = 2 10. Dysarthria (speech clarity - read or repeat words) - 0(Normal) 11. Extinction and Inattention (visual/tactile/auditory/spatial/personal) - 0(No abnormality) 1a. Level of Consciousness (LOC) - 0(Alert) 1b. Level of Consciousness (LOC) (Month \T\ Age) - 2(Neither) 1c. LOC Commands (Open \T\ Closes Eyes/Grounds Crew Supervisor) - 0(Both) 2. Best Gaze (Lateral Gaze Paresis) - 0(Normal) 3. Visual Field Loss - 0(No visual loss) 4. Facial Palsy - 0(Normal) 5a. Left Arm: Motor (10-second hold) - 0(No drift) 5b. Right Arm: Motor (10-second hold) - 0(No drift) 6a. Left Leg: Motor (5-second hold - always test supine) - 0(No drift) 6b. Right Leg: Motor (5-second hold - always test supine) - 0(No drift) 7. Limb Ataxia (finger/nose \T\ heel/calles - test with eyes open) - 0(Absent) 8. Sensory Loss (pinprick arms/legs/face) - 0(Normal) 9. Best Language: Aphasia (description/naming/reading) - 0(No aphasia) Initials: sp4 Signatures: Dispatcher [employer] EDKirk Valle MD MD sp4 Gennaro Lagos, RN RN bm8 Corrections: (The following items were deleted from the chart) 05/05 22:11 22:11 BASIC METABOLIC PANEL+C.LAB.BRZ ordered. EDMS EDMS 22:11 22:11 CBC+H.LAB.BRZ ordered. EDMS EDMS 22:11 22:11 HEPATIC FUNCTION+C.LAB.BRZ ordered. EDMS EDMS 22:11 22:11 MAGNESIUM+C.LAB.BRZ ordered. EDMS EDMS 22:11 22:11 PROBNP+C.LAB.BRZ ordered. EDMS EDMS 22:11 22:11 PROTIME (+INR)+COAG.LAB.BRZ ordered. EDMS EDMS 22:11 22:11 Troponin High Sensitivity+C.LAB.BRZ ordered. EDMS EDMS 22:11 22:11 Chest Single View+RAD.RAD.BRZ ordered. EDMS EDMS 22:12 22:12 Urinalysis W/Microscopic+U.LAB.BRZ ordered. EDMS EDMS 22:12 22:12 BLOOD CULTURE*+BA.LAB.BRZ ordered. EDMS EDMS 22:12 22:12 LACTATE+C.LAB.BRZ ordered. EDMS EDMS 22:12 22:12 C-REACTIVE PROTEIN+C.LAB.BRZ ordered. EDMS EDMS 22:12 22:12 THYROID STIMULAT HORMONE+C.LAB.BRZ ordered. EDMS EDMS 22:12 22:12 T4 FREE+C.LAB.BRZ ordered. EDMS EDMS 22:57 22:10 Cardiac monitoring ordered. sp4 bm8 05/06 03:03 02:59 Constitutional: This is a well developed, well nourished patient who is sp4 awake, alert, and in no acute distress. Patient is pleasantly demented but able to cooperate with exam and answer basic questions. He is alert and oriented to self and location. Disoriented to date and time Head/Face: Normocephalic, atraumatic. Eyes: Pupils equal round and reactive to light, extra-ocular motions intact. Lids and lashes normal. Conjunctiva and sclera are not injected. Cornea within normal limits. Periorbital areas with no swelling, redness, or edema. ENT: Nares patent. No nasal discharge, no septal abnormalities noted. Tympanic membranes are normal and external auditory canals are clear. Oropharynx with no redness, swelling, or masses, exudates, or evidence of obstruction, uvula midline. Mucous membranes moist. Neck: Trachea midline, no thyromegaly or masses palpated, and no cervical lymphadenopathy. Supple, full range of motion without nuchal rigidity, or vertebral point tenderness. Chest/axilla: Normal chest wall appearance and motion. Nontender with no deformity. No lesions are appreciated. Cardiovascular: Regular rate and rhythm with a normal S1 and S2. No gallops, murmurs, or rubs. Normal PMI, no JVD. No pulse deficits. Respiratory: Lungs have equal breath sounds bilaterally, clear to auscultation and percussion. No rales, rhonchi or wheezes noted. No increased work of breathing, no retractions or nasal flaring. Abdomen/GI: Soft, with normal bowel sounds. No distension or tympany. No guarding or rebound. No evidence of tenderness throughout. Back: No spinal tenderness. No costovertebral tenderness. Skin: Warm, dry with normal turgor. Normal color with no rashes, no lesions, and no evidence of cellulitis. MS/ Extremity: Pulses equal, no cyanosis. Neurovascular intact. Full, normal range of motion. Neuro: Awake and alert, GCS 15, oriented to person, place, time, and situation. Cranial nerves II-XII grossly intact. Motor strength 5/5 in all extremities. Sensory grossly intact. Psych: Awake, alert, with orientation to person, place and time. Behavior, mood, and affect are within normal limits sp4
[2024-05-05 23:15] VITALS: BP 131/62; TEMP 97.9; O2SAT 98
== END 2024-05-05 23:02 | disposition home or self-care (01) ==
LOC: ER 22:06
DX: F03.90 Unspecified dementia, unspecified severity, without behavioral disturbance, psychotic disturbance, mood disturbance, and anxiety (principal)
CPT/HCPCS: 99284